=== PATIENT | female | born 1965 | race Caucasian/White ===

== ENCOUNTER 2016-12-06 04:45 | Emergency (ER) | payer SELFPAY ==
[~2016-12-06] VITALS: Ht 165.1 cm; Wt 68.2 kg
[2016-12-06 04:51] VITALS: BP 157/94; PULSE 83; RESP 14; TEMP 98.4; O2SAT 97
[2016-12-06 05:02] VITALS: BP 157/94; PULSE 83; RESP 18; TEMP 98.4; O2SAT 97
[2016-12-06 05:23] VITALS: O2SAT 97
[2016-12-06] MEDS ORDERED: predniSONE 20 MG TAB PO ONE (05:30)
[2016-12-06] MEDS ORDERED: FAMOTIDINE 20 MG TAB PO ONE (05:30)
[2016-12-06] MEDS ORDERED: LORATADINE 10 MG TAB PO ONE (06:00)
[2016-12-06] MEDS ORDERED: MEDR4PAK PO (06:03)
--- NOTE | 2016-12-06 06:05 | PD ---
HPI Chief Complaint: Skin Problem Time Seen by Provider: 05:19 Travel History International Travel<30 days: No Contact w/Intl Traveler<30days: No Traveled to known affect area: No History of Present Illness HPI 51-year-old female presents to the emergency department by private transportation the care of her spouse for evaluation of swelling to the left forehead. Patient states she fell asleep on the couch last evening while knitting and felt fine before going to bed except early in the evening she had a brief episode of feeling some tightness in her chest that she thought was related to her recent antibiotic use for an ear infection. Patient states upon awakening she noticed that there was some pruritus of the forehead and as she scratched the area and noticed that there was some soft tissue swelling. Patient saw that there was a localized area of swelling and this was concerning to her and her said decided to come to the emergency room for evaluation. Patient also has some pruritus to the right posterior shoulder area but no soft tissue swelling or urticaria noted. Patient denies any lip tongue or throat swelling. Patient experienced no stridor or hoarseness. Patient denies shortness of breath wheezing or chest pain. No report of nausea or vomiting. No report of abdominal pain or cramping. No report of near- syncope or syncope. Patient denies any known allergies and no medication allergies although reports a sensitivity to Benadryl as it causes her heart to race. Patient states that she feels she is sensitive to numerous medications. Patient recently completed 2 courses of oral antibiotic for an ear infection/ sinus infection and finished a course of steroids 10 days ago. Patient denies any new foods new linens new fabrics new pets new furniture new lotions new creams new perfumes or soaps detergents; and is unable to identify any known allergens. Patient is uncertain if she may have sustained an insect/spider/ant bite. Patient denies taking any medications for allergic reaction prior to arrival to the emergency department. Forehead soft tissue swelling discomfort is rated as 1/10 in intensity. [facility] Past Medical History Narrative Medical Recent sinusitis/otitis media, menopause; no surgeries; tobacco use; nursing notes reviewed Diminished Hearing: No Tetanus Vaccination: Unknown Influenza Vaccination: No ?: Not Menopausal: Yes Social History Alcohol Use: No Tobacco Use: Yes Substance Use: No Allergies-Medications (Allergen,Severity, Reaction): Coded Allergies: No Known Allergies (Unverified , 12/06/16) Comments bladeryl -"makes heart beat fast" Reported Meds & Prescriptions Reported Meds & Active Scripts Active Medrol Dosepak (Methylprednisolone) 4 Mg Dspk 4 Mg PO DIRECTED Per Pharmacist direction Review of Systems Except as stated in HPI: all other systems reviewed are Neg General / Constitutional: No: Fever, Chills Eyes: No: Visual changes HENT: No: Headaches, Lightheadedness, Sore Throat, Congestion, Neck Pain, Earache Cardiovascular: No: Chest Pain or Discomfort, Palpitations, Tachycardia, Diaphoresis, Syncope, Dyspnea on exertion Respiratory: No: Cough, Shortness of Breath, Wheezing, Orthopnea, Stridor, Pleuritic Pain Gastrointestinal: No: Nausea, Vomiting Genitourinary: No: Decreased Urinary Output, Flank Pain Musculoskeletal: No: Myalgias, Arthralgias Skin: Positive Rash, Positive Itching (left forehead and right upper back/ shoulder) Neurologic: No: Weakness, Dizziness, Syncope, Focal Abnormalities, Coordination Problem Psychiatric: No: Anxiety Endocrine: No: Heat Intolerance Hematologic/Lymphatic: No: Easy Bruising Physical Exam Narrative GENERAL: Well-developed well-nourished female in no acute distress no respiratory distress; GCS 15; no stridor or hoarseness SKIN: Warm and dry. 5 cm x 6 cm area of urticarial swelling to the left forehead with area of 1/4 cm x 1/4 cm erythematous papule without vesicle or pustule suspicious for insect envenomation with minimal excoriation where patient has been scratching the area as well as area of erythema with excoriation to the right posterior shoulder upper back. HEAD: Atraumatic. Normocephalic. EYES: Pupils equal and round. Extraocular muscles intact. No scleral icterus. No injection or drainage. ENT: No nasal bleeding or discharge. Mucous membranes pink and moist. Airway is patent. No visible angioedema. NECK: Trachea midline. No JVD. CARDIOVASCULAR: Regular rate and rhythm. RESPIRATORY: No accessory muscle use. Clear to auscultation. Breath sounds equal bilaterally. GASTROINTESTINAL: Abdomen soft, non-tender, nondistended. Hepatic and splenic margins not palpable. MUSCULOSKELETAL: Extremities without clubbing, cyanosis, or edema. No obvious deformities. NEUROLOGICAL: Awake and alert. No obvious cranial nerve deficits. Motor grossly within normal limits. Five out of 5 muscle strength in the arms and legs. Normal speech. PSYCHIATRIC: Appropriate mood and affect; insight and judgment normal. Data Data Last Documented VS Vital Signs Date Time Temp Pulse Resp B/P Pulse Ox O2 Delivery O2 Flow Rate FiO2 12/06/16 05:23 97 Room Air 12/06/16 05:04 83 18 12/06/16 05:02 98.4 157/94 Orders Electrocardiogram (12/06/16 ) Ecg Monitoring (12/06/16 05:19) Iv Access Insert/Monitor (12/06/16 05:19) Oximetry (12/06/16 05:19) Prednisone (Deltasone) (12/06/16 05:30) Famotidine (Pepcid) (12/06/16 05:30) Loratadine (Claritin) (12/06/16 06:00) Ice/Cold Pack (12/06/16 05:52) MDM Medical Decision Making Medical Screen Exam Complete: Yes Emergency Medical Condition: Yes Medical Record Reviewed: Yes Interpretation(s) EKG: Normal sinus rhythm rate [address] elevation or injury pattern or ectopy noted; artifact is present Differential Diagnosis Focal allergic reaction, isolated urticaria, contact dermatitis, cellulitis, abscess, contusion, insect envenomation, angioedema, anaphylaxis Narrative Course Patient presents with new onset large urticarial lesion with probable foci of insect bite with pruritus; patient administered oral prednisone 60 mg, oral Pepcid 20 mg, and Claritin 10 mg times one dose EKG performed which shows sinus rhythm no acute ST elevation or injury pattern change noted. At 6:24 AM patient is clinically and symptomatically improved and stable for outpatient management. Diagnosis Primary Impression: Allergic reaction, urticaria Referrals: Primary Care Physician call for appointment Patient Instructions: General Instructions Additional Instructions: Increase fluid hydration Avoid overheating Avoid scratching area of irritation Complete course of steroid as prescribed May use Pepcid OTC per package directions 7 days May use Claritin 10 or Zyrtec 10 per package directions as needed for allergic reaction/pruritus Follow-up with primary care provider Return to the emergency department for any recurrence of symptoms or any concerns Med/Other Pt SpecificInfo: Prescription(s) given Scripts Methylprednisolone Dosepak (Medrol Dosepak)4 Mg Dspk4 Mg PO DIRECTED #1 DSPK Ref 0 Per Pharmacist direction Prov:Vaishnavi Herrmann MD 12/06/16 Disposition: 01 DISCHARGE HOME Condition: Stable Vaishnavi Herrmann MD Dec 06, 2016 06:05
[2016-12-06 06:30] VITALS: BP 141/82; PULSE 78; RESP 18; O2SAT 97
--- NOTE | 2016-12-06 09:30 | EKG ---
Date Performed: 12/06/2016 Time Performed: 05:26:20 PTAGE: 51 years EKG: --- Warning: Data quality may affect interpretation --- Sinus rhythm Normal ECG NO PREVIOUS TRACING DOCTOR: Aric Royla Interpretating Date/Time 12/06/2016 09:28:11
== END 2016-12-06 06:32 | disposition home or self-care (01) ==
LOC: PHED 04:45
DX: L50.0 Allergic urticaria (principal); R07.89 Other chest pain; Z72.0 Tobacco use
CPT/HCPCS: 93005; 99283; J7512

== ENCOUNTER 2017-03-10 06:57 | Emergency (ER) | payer SELFPAY ==
[~2017-03-10] VITALS: Ht 160 cm; Wt 63.0 kg
[~2017-03-10 06:57] MED LIST: MEDR4PAK PO
[2017-03-10 07:01] VITALS: BP 175/93; PULSE 89; RESP 16; TEMP 98.9; O2SAT 98
[2017-03-10 07:10] VITALS: BP 175/93; PULSE 89; RESP 16; TEMP 98.9; O2SAT 98
--- NOTE | 2017-03-10 07:29 | PD ---
HPI Chief Complaint: Cold / Flu Symptoms Time Seen by Provider: 07:27 Travel History International Travel<30 days: No Contact w/Intl Traveler<30days: No Traveled to known affect area: No History of Present Illness HPI 51-year-old female with history of no significant past medical issues, presents to the ER today for 2 days history of right upper quadrant abdominal pain and right lower rib pains which worsens with certain position especially with laying down or coughing and moving. She denies any shortness of breath. States she has had some fevers but denies any nausea, vomiting, or other symptoms. Modifying Factors: None Associated Signs & Symptoms: Right lower rib pains and right upper quadrant abdominal pains, fevers Risk Factors: None PFSH Past Medical History Diminished Hearing: No Influenza Vaccination: No ?: Not Menopausal: Yes Social History Alcohol Use: No Tobacco Use: Yes Substance Use: No Allergies-Medications (Allergen,Severity, Reaction): Coded Allergies: No Known Allergies (Unverified , 03/10/17) Reported Meds & Prescriptions Reported Meds & Active Scripts Active No Active Prescriptions or Reported Medications Review of Systems Except as stated in HPI: all other systems reviewed are Neg Physical Exam Narrative GENERAL: Well-developed middle age white female patient currently in no acute distress. Awake and oriented 3. SKIN: Focused skin assessment warm/dry. HEAD: Atraumatic. Normocephalic. EYES: Pupils equal and round. No scleral icterus. No injection or drainage. ENT: No nasal bleeding or discharge. Mucous membranes pink and moist. NECK: Trachea midline. No JVD. CARDIOVASCULAR: Regular rate and rhythm. No murmur appreciated. RESPIRATORY: No accessory muscle use. Clear to auscultation. Breath sounds equal bilaterally. GASTROINTESTINAL: Abdomen soft, mild right upper quadrant tenderness without guarding or rebound, nondistended. Hepatic and splenic margins not palpable. MUSCULOSKELETAL: No obvious deformities. No clubbing. No cyanosis. No edema. NEUROLOGICAL: Awake and alert. No obvious cranial nerve deficits. Motor grossly within normal limits. Normal speech. PSYCHIATRIC: Appropriate mood and affect; insight and judgment normal. Data Data Last Documented VS Vital Signs Date Time Temp Pulse Resp B/P (MAP) Pulse Ox O2 Delivery O2 Flow Rate FiO2 03/10/17 07:48 84 18 167/92 (117) 97 Room Air 03/10/17 07:10 98.9 Orders Orders Chest, Single Ap (03/10/17 07:09) Complete Blood Count With Diff (03/10/17 07:27) Comprehensive Metabolic Panel (03/10/17 07:27) Lipase (03/10/17 07:27) Urinalysis - C+S If Indicated (03/10/17 07:27) Ct Abd/Pel W Iv Contrast(Rout) (03/10/17 07:27) Iv Access Insert/Monitor (03/10/17 07:27) Ecg Monitoring (03/10/17 07:27) Oximetry (03/10/17 07:27) Sodium Chloride 0.9% Flush (Ns Flush) (03/10/17 07:30) Iohexol 350 Inj (Omnipaque 350 Inj) (03/10/17 08:20) Mandatory Outpatient Referral (03/10/17 08:57) Labs Laboratory Tests Test 03/10/17 07:35 03/10/17 08:30 White Blood Count 6.2 TH/MM3 Red Blood Count 4.94 MIL/MM3 Hemoglobin 14.2 GM/DL Hematocrit 41.8 % Mean Corpuscular Volume 84.7 FL Mean Corpuscular Hemoglobin 28.8 PG Mean Corpuscular Hemoglobin Concent 34.0 % Red Cell Distribution Width 11.8 % Platelet Count 287 TH/MM3 Mean Platelet Volume 7.8 FL Neutrophils (%) (Auto) 66.3 % Lymphocytes (%) (Auto) 20.8 % Monocytes (%) (Auto) 8.1 % Eosinophils (%) (Auto) 4.2 % Basophils (%) (Auto) 0.6 % Neutrophils # (Auto) 4.1 TH/MM3 Lymphocytes # (Auto) 1.3 TH/MM3 Monocytes # (Auto) 0.5 TH/MM3 Eosinophils # (Auto) 0.3 TH/MM3 Basophils # (Auto) 0.0 TH/MM3 CBC Comment DIFF FINAL Differential Comment Blood Urea Nitrogen 8 MG/DL Creatinine 0.66 MG/DL Random Glucose 111 MG/DL Total Protein 7.4 GM/DL Albumin 3.5 GM/DL Calcium Level 8.8 MG/DL Alkaline Phosphatase 91 U/L Aspartate Amino Transf (AST/SGOT) 48 U/L Alanine Aminotransferase (ALT/SGPT) 29 U/L Total Bilirubin 0.3 MG/DL Sodium Level 139 MEQ/L Potassium Level 3.6 MEQ/L Chloride Level 104 MEQ/L Carbon Dioxide Level 28.7 MEQ/L Anion Gap 6 MEQ/L Estimat Glomerular Filtration Rate 94 ML/MIN Lipase 132 U/L Urine Collection Type VOIDED Urine Color STRAW Urine Turbidity CLEAR Urine pH 6.5 Urine Specific [place] 1.015 Urine Protein NEG mg/dL Urine Glucose (UA) NEG mg/dL Urine Ketones NEG mg/dL Urine Occult Blood NEG Urine Nitrite NEG Urine Bilirubin NEG Urine Leukocyte Esterase NEG Urine WBC 0-2 /hpf Urine Squamous Epithelial Cells 0-5 /hpf Microscopic Urinalysis Comment CULT NOT INDICATED MDM Medical Decision Making Medical Screen Exam Complete: Yes Emergency Medical Condition: Yes Medical Record Reviewed: Yes Interpretation(s) Laboratory Tests Test 03/10/17 07:35 03/10/17 08:30 Monocytes (%) (Auto) 8.1 % (0.0-8.0) Eosinophils (%) (Auto) 4.2 % (0.0-4.0) Random Glucose 111 MG/DL (74-106) Aspartate Amino Transf (AST/SGOT) 48 U/L (15-37) Last 24 hours Impressions Abdomen/Pelvis CT 03/10/17726 Signed Impressions: Service Date/Time: Friday, March 10, 2017 08:11 - CONCLUSION: 1. Abnormal examination. Large bilobar hepatic masses measuring up to 8.3 cm and pulmonary nodules measuring up to 1 cm in the visualized portions of the lower lobes consistent with metastatic disease. No definite primary malignancy is identified by CT in the abdomen or pelvis. Hepatic masses are amenable to percutaneous biopsy. 2. Probable uterine leiomyoma measuring up to 3.4 cm. Kurt Santiago MD Chest X-Ray 03/10/17 0709 Signed Impressions: Service Date/Time: Friday, March 10, 2017 07:47 - CONCLUSION: No acute disease. Gunnar Kaur MD Differential Diagnosis Right upper quadrant and right lower rib pains: Costochondritis versus pneumonia versus pleurisy versus cholecystitis versus other acute intra- abdominal processes Narrative Course Patient's also states that she has had a 30. Loss in the span of several months. He is concerned because she is not having appetite. Lab work did not show significant metabolic issues and chest x-ray was unremarkable. CAT scan was done showing liver mass and pulmonary nodules concerning for underlying tumors. At this point, I do not see other acute processes and my plan would be to release the patient with close follow-up to primary care physician and oncology. Mandatory referral was given for oncology. Return for any worsening in pain or new symptoms as needed. The plan has discussed with the patient and and they state understanding. Diagnosis Primary Impression: Liver masses Additional Impression: Pulmonary nodules/lesions, multiple Referrals: Shelby Farmer MD Scripts No Active Prescriptions or Reported Meds Disposition: 01 DISCHARGE HOME Condition: Stable Brianna Oakes MD Mar 10, 2017 07:29
[2017-03-10] MEDS ORDERED: SODIUM CHLORIDE 0.9% FLUSH 10 ML FLUSH IV FLUSH PRN (07:30)
[2017-03-10 07:41] LABS: AUTOMATED NEUTROPHIL # 4.1 TH/MM3 (1.8-7.7); BASOPHIL % 0.6 % (0.0-2.0); EOSINOPHIL # 0.3 TH/MM3 (0-0.4); EOSINOPHIL % 4.2 % (0.0-4.0); HEMATOCRIT 41.8 % (35.0-46.0); HEMO FLAGS DIFF FINAL; LYMPH % 20.8 % (9.0-44.0); LYMPHOCYTE # 1.3 TH/MM3 (1.0-4.8); MEAN CELL VOLUME 84.7 FL (80.0-100.0); MEAN CORPUSCULAR HEMOGLOBIN 28.8 PG (27.0-34.0); MONO % 8.1 % (0.0-8.0); NEUT % 66.3 % (16.0-70.0); PLATELET COUNT 287 TH/MM3 (150-450); RED BLOOD COUNT 4.94 MIL/MM3 (4.00-5.30); RED CELL DISTRIBUTION WIDTH 11.8 % (11.6-17.2); WHITE BLOOD COUNT 6.2 TH/MM3 (4.0-11.0)
[2017-03-10 07:48] VITALS: BP 167/92; PULSE 84; RESP 18; O2SAT 97
[2017-03-10 07:56] LABS: CHLORIDE 104 MEQ/L (98-107); POTASSIUM 3.6 MEQ/L (3.5-5.1); SODIUM (NA) 139 MEQ/L (136-145)
--- NOTE | 2017-03-10 07:58 | RADRPT ---
EXAM DATE/TIME: 03/10/2017 07:47 [facility] COMPARISON: No previous studies available for comparison. INDICATIONS : Right lower rib pain, cough. MEDICAL HISTORY : None. SURGICAL HISTORY : None. ENCOUNTER: Initial ACUITY: 3 days PAIN SCORE: 5/10 LOCATION: Right lower chest ribs FINDINGS: A single view of the chest demonstrates the lungs to be symmetrically aerated without evidence of mas s, infiltrate or effusion. The cardiomediastinal contours are unremarkable. Osseous structures are intact. CONCLUSION: No acute disease. Gunnar Kaur MD on March 10, 2017 at 7:56 Board Certified Radiologist. This report was verified electronically.
[2017-03-10 08:00] LABS: ANION GAP 6 MEQ/L (5-15); BICARBONATE 28.7 MEQ/L (21.0-32.0); BLOOD UREA NITROGEN 8 MG/DL (7-18)
[2017-03-10 08:03] LABS: ALT (GPT) 29 U/L (10-53); AST (GOT) 48 U/L (15-37); GLOMERULAR FILTRATION RATE 94 ML/MIN (>89)
[2017-03-10 08:04] LABS: TOTAL BILIRUBIN ADULT 0.3 MG/DL (0.2-1.0)
[2017-03-10 08:06] LABS: ALKALINE PHOSPHATASE 91 U/L (45-117)
[2017-03-10] MEDS ORDERED: IOHEXOL 350 MG/ML 10 ML VIAL (for RAD DIAG) IVCONTRAST ONE (08:20)
[2017-03-10 08:36] LABS: BLOOD, URINE NEG (NEG); GLUCOSE,URINE NEG (NEG); KETONE, URINE NEG (NEG); NITRITE,URINE NEG (NEG); PH, URINE 6.5 (5.0-8.5)
--- NOTE | 2017-03-10 08:44 | RADRPT ---
EXAM DATE/TIME: 03/10/2017 08:11 [facility] COMPARISON: CHEST SINGLE AP, March 10, 2017, 7:47. INDICATIONS : Right upper quadrant pain x 2 days. Constipation. IV CONTRAST: 85 cc Omnipaque 350 (iohexol) IV ORAL CONTRAST: No oral contrast ingested. RADIATION DOSE: 5.91 CTDIvol (mGy) MEDICAL HISTORY : None SURGICAL HISTORY : None. ENCOUNTER: Initial ACUITY: 2 days PAIN SCALE: 3/10 LOCATION: Right upper quadrant TECHNIQUE: Volumetric scanning of the abdomen and pelvis was performed. Using automated exposure control and ad justment of the mA and/or kV according to patient size, radiation dose was kept as low as reasonably achievable to obtain optimal diagnostic quality images. DICOM format image data is available electro nically for review and comparison. FINDINGS: LOWER LUNGS: Mild focal groundglass opacities in the left lung base. 10 mm nearly spiculated nodule in the right l kg base. Partially imaged 6 mm nodule peripherally in the right lower lobe. LIVER: Grossly abnormal. Multiple hypodense hepatic masses in both lobes of the liver. Largest mass in the l eft lobe measures 6.1 x 7.8 x 6.7 cm in segment 2. Larger cyst mass in the right lobe measures 8.3 x 6.1 x 4.9 cm in segments 6/5. Underlying liver appears unremarkable without evidence for volume loss. No significant intrahepatic ductal dilatation. No evidence for portal vein invasion. SPLEEN: Normal size without lesion. PANCREAS: Within normal limits. KIDNEYS: Normal in size and shape. There is no mass, stone or hydronephrosis. ADRENAL GLANDS: Within normal limits. VASCULAR: There is no aortic aneurysm. BOWEL/MESENTERY: Bowel appears grossly unremarkable. No definitive evidence for significant mass or obstruction. Appen patsy is normal in appearance. ABDOMINAL WALL: Within normal limits. RETROPERITONEUM: There is no lymphadenopathy. BLADDER: No wall thickening or mass. REPRODUCTIVE: Ill-defined hypodense mass in the body of the uterus measuring approximately 3.4 x 3.3 cm likely refl ecting a uterine leiomyoma. No significant adnexal mass. INGUINAL: There is no lymphadenopathy or hernia. MUSCULOSKELETAL: No abnormal focal lytic or blastic bony lesions in the visualized osseous structures. CONCLUSION: 1. Abnormal examination. Large bilobar hepatic masses measuring up to 8.3 cm and pulmonary nodules me asuring up to 1 cm in the visualized portions of the lower lobes consistent with metastatic disease. No definite primary malignancy is identified by CT in the abdomen or pelvis. Hepatic masses are gwen ble to percutaneous biopsy. 2. Probable uterine leiomyoma measuring up to 3.4 cm. Kurt Santiago MD on March 10, 2017 at 8:27 Board Certified Radiologist. This report was verified electronically.
[2017-03-10 08:48] LABS: METHOD OF COLLECTION VOIDED; URINE COLOR STRAW (YELLW/STRAW)
[2017-03-10 08:49] LABS: COMMENT (UR) CULT NOT INDICATED; CULTURE IF INDICATED CULT NOT INDICATED; SQUAMOUS EPITHELIAL CELL URINE 0-5 /hpf (0-5); WBC, URINE 0-2 /hpf (0-5)
== END 2017-03-10 09:11 | disposition home or self-care (01) ==
LOC: PHED 06:57
DX: R16.0 Hepatomegaly, not elsewhere classified (principal); R91.8 Other nonspecific abnormal finding of lung field; R07.81 Pleurodynia; R50.9 Fever, unspecified; Z72.0 Tobacco use
CPT/HCPCS: 71010; 74177; 80053; 81001; 83690; 85025; 99285; Q9967